=== PATIENT | female | born 1980 | race Caucasian/White ===

== ENCOUNTER 2019-07-05 18:51 | Emergency (ER) | payer MEDICAID ==
[2019-07-05 19:22] LABS: ABSOLUTE BASOPHILS # (AUTO) 0.1 10^3/uL (0.0-0.2); ABSOLUTE EOSINOPHILS # (AUTO) 0.3 10^3/uL (0.0-0.6); ABSOLUTE MONOCYTES (AUTO) 0.6 10^3/uL (0.1-1.4); ABSOLUTE NEUT (AUTO) 5.2 10^3/uL (1.7-8.2); BASOPHILS % (AUTO) 0.8 % (0-2); EOSINOPHILS % (AUTO) 3.3 % (0-6); HEMATOCRIT 38.6 % (36.0-47.0); HEMOGLOBIN 12.8 g/dL (12.0-15.5); LYMPHOCYTES % (AUTO) 32.9 % (13-45); MEAN CORPUSCULAR HEMOGLOBIN 30.4 pg (27.0-33.4); MEAN CORPUSCULAR HGB CONC 33.1 g/dL (32.0-36.0); MEAN CORPUSCULAR VOLUME 92 fl (80-97); MONOCYTES % (AUTO) 6.5 % (3-13); PLATELET COUNT 221 10^3/uL (150-450); RED CELL DISTRIBUTION WIDTH 14.2 % (11.5-14.0); SEGMENTED NEUTROPHILS % (AUTO) 56.5 % (42-78); TOTAL CELLS COUNTED % (AUTO) 100 %; WHITE BLOOD COUNT 9.2 10^3/uL (4.0-10.5)
[2019-07-05] MEDS ORDERED: ATROPINE SULFATE INJ 1 MG/10 ML DISP.SYRIN IV ONE (19:24)
[2019-07-05] MEDS ORDERED: DEXTROSE 5%-1/2 NORMAL SALINE 500 ML IV ONE (19:24)
--- NOTE | 2019-07-05 19:25 | ER Document Report ---
ED General - General Chief Complaint: Low Blood Sugar Stated Complaint: BLOOD SUGAR ISSUES Time Seen by Provider: 07/05/19 19:09 Mode of Arrival: Medic Information source: Patient, Emergency Med Personnel Notes: 39-year-old female with hypothyroidism, factor V, surgical history of gastric bypass 16 months ago, previous history of PE, DVT on Eliquis presents after a near syncopal episode that occurred just prior to arrival. Patient states that she was in the [facility] bathroom when she suddenly felt flushed, nauseous and had a change in her vision which prompted her to lay herself on the floor. She states when she opened her eyes EMS was there. There is a questionable loss of consciousness but patient states she did not hit her head. Patient has had prior similar symptoms. She denies any recent illness. Currently she is denies chest pain, shortness of breath, dizziness, headache, dysuria, hematuria. She is complaining of left lower quadrant abdominal pain that she describes as sharp, intermittent and lasting only a few minutes. Her last bowel movement was yesterday. She denies any black or bloody stools. She does report a 300 pound weight loss since undergoing her gastric bypass. She denies any complications. She is currently visiting her sister from [place]. Patient denies any new medication, changes in medication, drug use, alcohol use. - HPI Onset: Just prior to arrival Onset/Duration: Sudden, Intermittent Quality of pain: Sharp Severity: Mild Associated symptoms: denies: Chest pain, Nonproductive cough, Productive cough, Diarrhea, Headache, Hurts to breath, Nausea, Vomiting, Shortness of breath, Sweating, Weakness Exacerbated by: Denies Relieved by: Denies Similar symptoms previously: Yes Recently seen / treated by doctor: No - Related Data Allergies/Adverse Reactions: Penicillins Allergy (Verified 07/05/19 18:59) Past Medical History - General Information source: Patient - Social History Smoking Status: Current Every Day Smoker Cigarette use (# per day): Yes - 10 Smoking Education Provided: Yes - Smoking cessation counseling was provided for 4 minutes at the bedside Frequency of alcohol use: None Drug Abuse: None Lives with: Family Family History: Reviewed & Not Pertinent Patient has suicidal ideation: No Patient has homicidal ideation: No - Medical History Medical History: Other - Factor V Endocrine Medical History: Reports: Hx Hypothyroidism Renal/ Medical History: Denies: Hx Peritoneal Dialysis Review of Systems - Review of Systems Constitutional: Diaphoresis - Resolved, Weight loss. denies: Chills, Fever EENT: Blurred vision - Resolved Cardiovascular: Dizziness - Resolved, Lightheaded - Resolved. denies: Chest pain, Palpitations Respiratory: denies: Cough, Hurts to breathe, Short of breath, Wheezing Gastrointestinal: Abdominal pain, Nausea - Resolved. denies: Vomiting, Blood streaked bowels, Poor appetite, Poor fluid intake, Black stools, Rectal bleeding Genitourinary: denies: Dysuria, Flank pain, Hematuria Female Genitourinary: Other - Currently menstruating Musculoskeletal: denies: Back pain, Leg swelling Skin: denies: Rash Hematologic/Lymphatic: No symptoms reported Neurological/Psychological: Lost consciousness. denies: Headaches -: Yes All other systems reviewed and negative Physical Exam - Vital signs Vitals: Resp Pulse Ox 14 100 07/05/19 19:07 07/05/19 19:07 - Notes Notes: PHYSICAL EXAMINATION: GENERAL: Well-appearing, well-nourished and in no acute distress. HEAD: Atraumatic, normocephalic. EYES: Pupils equal round and reactive to light, extraocular movements intact, conjunctiva are normal. ENT: Nares patent, oropharynx clear without exudates. Moist mucous membranes. NECK: Normal range of motion, supple without lymphadenopathy LUNGS: Breath sounds clear to auscultation bilaterally and equal. No wheezes rales or rhonchi. HEART: Bradycardic while lying down but has regular rate with sitting and standing. No murmurs. Sinus rhythm. ABDOMEN: Soft, nontender, nondistended abdomen. No guarding, no rebound. Nontender umbilical hernia palpated. Female : deferred Musculoskeletal: Normal range of motion, no pitting or edema. No cyanosis. NEUROLOGICAL: Cranial nerves grossly intact. Normal speech, normal gait. Normal sensory, motor exams PSYCH: Normal mood, normal affect. SKIN: Warm, Dry, normal turgor, no rashes or lesions noted. Course - Re-evaluation Re-evalutation: Laboratory 07/05/19 07/05/19 07/05/19 19:05 19:08 19:08 WBC 9.2 RBC 4.20 Hgb 12.8 Hct 38.6 MCV 92 MCH 30.4 MCHC 33.1 RDW 14.2 H Plt Count 221 Lymph % (Auto) 32.9 Sawyer % (Auto) 6.5 Eos % (Auto) 3.3 Baso % (Auto) 0.8 Absolute Neuts (auto) 5.2 Absolute Lymphs (auto) 3.0 Absolute Monos (auto) 0.6 Absolute Eos (auto) 0.3 Absolute Basos (auto) 0.1 Seg Neutrophils % 56.5 PT INR APTT D-Dimer Sodium 138.1 Potassium 4.0 Chloride 106 Carbon Dioxide 25 Anion Gap 7 BUN 10 Creatinine 0.71 Est GFR ( Amer) > 60 Est GFR (MDRD) Non-Af > 60 Glucose 101 POC Glucose 86 Calcium 8.9 Phosphorus 3.4 Magnesium 2.1 Total Bilirubin 0.6 Direct Bilirubin 0.3 Neonat Total Bilirubin Not Reportable Neonat Direct Bilirubin Not Reportable Neonat Indirect Bili Not Reportable AST 39 H ALT 24 Alkaline Phosphatase 100 Troponin I Total Protein 7.1 Albumin 3.8 TSH Free T4 Free T3 pg/mL Urine Color Urine Appearance Urine pH Ur Specific Huntington Urine Protein Urine Glucose (UA) Urine Ketones Urine Blood Urine Nitrite Urine Bilirubin Urine Urobilinogen Ur Leukocyte Esterase Urine WBC (Auto) Urine RBC (Auto) U Hyaline Cast (Auto) Urine Bacteria (Auto) Squamous Epi Cells Auto Urine Mucus (Auto) Urine Ascorbic Acid Urine HCG, Qual Urine Opiates Screen Urine Methadone Screen Ur Barbiturates Screen Ur Phencyclidine Scrn Ur Amphetamines Screen U Benzodiazepines Scrn Urine Cocaine Screen U Marijuana (THC) Screen 07/05/19 07/05/19 07/05/19 19:08 19:08 19:08 WBC RBC Hgb Hct MCV MCH MCHC RDW Plt Count Lymph % (Auto) Sawyer % (Auto) Eos % (Auto) Baso % (Auto) Absolute Neuts (auto) Absolute Lymphs (auto) Absolute Monos (auto) Absolute Eos (auto) Absolute Basos (auto) Seg Neutrophils % PT 15.1 INR 1.19 APTT 31.7 D-Dimer 0.71 H Sodium Potassium Chloride Carbon Dioxide Anion Gap BUN Creatinine Est GFR ( Amer) Est GFR (MDRD) Non-Af Glucose POC Glucose Calcium Phosphorus Magnesium Total Bilirubin Direct Bilirubin Neonat Total Bilirubin Neonat Direct Bilirubin Neonat Indirect Bili AST ALT Alkaline Phosphatase Troponin I < 0.012 Total Protein Albumin TSH 73.30 H Free T4 0.92 Free T3 pg/mL 2.06 L Urine Color Urine Appearance Urine pH Ur Specific Huntington Urine Protein Urine Glucose (UA) Urine Ketones Urine Blood Urine Nitrite Urine Bilirubin Urine Urobilinogen Ur Leukocyte Esterase Urine WBC (Auto) Urine RBC (Auto) U Hyaline Cast (Auto) Urine Bacteria (Auto) Squamous Epi Cells Auto Urine Mucus (Auto) Urine Ascorbic Acid Urine HCG, Qual Urine Opiates Screen Urine Methadone Screen Ur Barbiturates Screen Ur Phencyclidine Scrn Ur Amphetamines Screen U Benzodiazepines Scrn Urine Cocaine Screen U Marijuana (THC) Screen 07/05/19 07/05/19 20:20 20:20 WBC RBC Hgb Hct MCV MCH MCHC RDW Plt Count Lymph % (Auto) Sawyer % (Auto) Eos % (Auto) Baso % (Auto) Absolute Neuts (auto) Absolute Lymphs (auto) Absolute Monos (auto) Absolute Eos (auto) Absolute Basos (auto) Seg Neutrophils % PT INR APTT D-Dimer Sodium Potassium Chloride Carbon Dioxide Anion Gap BUN Creatinine Est GFR ( Amer) Est GFR (MDRD) Non-Af Glucose POC Glucose Calcium Phosphorus Magnesium Total Bilirubin Direct Bilirubin Neonat Total Bilirubin Neonat Direct Bilirubin Neonat Indirect Bili AST ALT Alkaline Phosphatase Troponin I Total Protein Albumin TSH Free T4 Free T3 pg/mL Urine Color YELLOW Urine Appearance SLIGHTLY-CLOUDY Urine pH 6.0 Ur Specific Huntington 1.008 Urine Protein NEGATIVE Urine Glucose (UA) NEGATIVE Urine Ketones NEGATIVE Urine Blood LARGE H Urine Nitrite NEGATIVE Urine Bilirubin NEGATIVE Urine Urobilinogen NEGATIVE Ur Leukocyte Esterase TRACE H Urine WBC (Auto) 9 Urine RBC (Auto) 17 U Hyaline Cast (Auto) 1 Urine Bacteria (Auto) TRACE Squamous Epi Cells Auto 1 Urine Mucus (Auto) RARE Urine Ascorbic Acid NEGATIVE Urine HCG, Qual NEGATIVE Urine Opiates Screen NEGATIVE Urine Methadone Screen NEGATIVE Ur Barbiturates Screen NEGATIVE Ur Phencyclidine Scrn NEGATIVE Ur Amphetamines Screen NEGATIVE U Benzodiazepines Scrn NEGATIVE Urine Cocaine Screen NEGATIVE U Marijuana (THC) Screen NEGATIVE Abdomen/Pelvis CT 07/05/19 00:00 IMPRESSION: 1. No CT evidence for pulmonary embolism. 2. No acute pulmonary findings. 3. Fat-containing umbilical hernia with mild edema. Please correlate with clinical symptoms regarding possible fat necrosis. There is no bowel involvement. 4. No bowel obstruction or perforation 5. Previous gastric surgery Chest X-Ray 07/05/19 19:10 IMPRESSION: NO ACUTE RADIOGRAPHIC FINDING IN THE CHEST. Chest/Abdomen CTA 07/05/19 20:24 IMPRESSION: 1. No CT evidence for pulmonary embolism. 2. No acute pulmonary findings. 3. Fat-containing umbilical hernia with mild edema. Please correlate with clinical symptoms regarding possible fat necrosis. There is no bowel involvement. 4. No bowel obstruction or perforation 5. Previous gastric surgery Temp Pulse Resp BP Pulse Ox 98.7 F 56 L 12 115/78 100 07/06/19 00:29 07/06/19 00:29 07/06/19 00:29 07/06/19 00:29 07/05/19 22:00 07/05/19 19:33 39-year-old female presents via EMS after a near syncopal episode that occurred just prior to arrival. Glucose was found to be 65 and she was administered dextrose and repeat GGT is 95. EKG was obtained which does show sinus bradycardia at a rate of 40. Upon my exam patient's heart rate ranged from 45- 70. Patient's only current complaint is lower abdominal pain that she describes as intermittent. She has a benign abdominal exam. She does have a nontender umbilical hernia that is easily reduced. Patient is orthostatic negative. Heart rate did improve when she stood. She ambulated without difficulty. 07/05/19 23:55 Patient's TSH is markedly elevated. She is currently taking 175 mcg of Synthroid and reports that she has been compliant with her medication although she states that her thyroid levels have been hard to control. Patient did receive IV fluids. CTA was obtained after d-dimer was found to be elevated. CT of the chest showed no evidence of pulmonary embolism. CT of the abdomen did show an umbilical hernia which did not appear incarcerated or strangulated. T here was edema around the area but on reexamination patient has no pain over the the hernia. Patient did receive 1 dose of pain and atropine and did receive additional Synthroid. I will increase the patient's Synthroid to 200 mcg daily. Patient's bradycardia is likely secondary to her hypothyroidism but she is currently asymptomatic. I discussed at length that the patient should not drive until seen by her primary care physician in [place]. Patient was provided copies of all of her labs and imaging that were performed today. Patient is comfortable with discharge home. Encouraged to return with any concerning symptoms. 07/06/19 05:46 Patient was evaluated and treated as appropriate for the patient's presenting symptoms and complaint, with consideration of any critical or life threatening conditions that may be associated with their obtained history and exam as noted above. All results were discussed with patient and her who is at the bedside. Patient provided the opportunity to ask questions, and express concerns. Patient was educated on treatments based on their presumed diagnosis as noted above. At this time we will discharge the patient with return precautions and follow-up recommendations. Verbal discharge instructions given a the bedside. Medication warnings reviewed. Patient is in agreement with this plan and has verbalized understanding of return precautions. After careful consideration I feel that that patient can be safely discharged from the emergency department, they were advised to followup with a primary care physician in 2-3 days. Dictation on this chart was performed using voice recognition software and may result in unintended grammatical, spelling, syntax or errors. - Vital Signs Vital signs: Temp Pulse Resp BP Pulse Ox 98.7 F 56 L 12 115/78 100 07/06/19 00:29 07/06/19 00:29 07/06/19 00:29 07/06/19 00:29 07/05/19 22:00 - Laboratory Result Diagrams: 07/05/19 19:08 07/05/19 19:08 Laboratory results interpreted by me: 07/05/19 07/05/19 07/05/19 19:08 19:08 19:08 RDW 14.2 H D-Dimer AST 39 H TSH 73.30 H Free T3 pg/mL 2.06 L Urine Blood Ur Leukocyte Esterase 07/05/19 07/05/19 19:08 20:20 RDW D-Dimer 0.71 H AST TSH Free T3 pg/mL Urine Blood LARGE H Ur Leukocyte Esterase TRACE H - Diagnostic Test Radiology reviewed: Image reviewed, Reports reviewed - EKG Interpretation by Me EKG shows normal: Sinus rhythm Rate: Bradycardia Rhythm: NSR When compared to previous EKG there are: Previous EKG unavailable Discharge - Discharge Clinical Impression: Near syncope, Bradycardia, Elevated d-dimer Umbilical hernia Qualifiers: Obstruction and gangrene presence: without obstruction or gangrene Qualified Code(s): K42.9 - Umbilical hernia without obstruction or gangrene Hypothyroidism Qualifiers: Hypothyroidism type: unspecified Qualified Code(s): E03.9 - Hypothyroidism, unspecified Condition: Good Disposition: HOME, SELF-CARE Instructions: Hypothyroidism ([facility]), Near Syncopal Episode ([facility]), Umbilical Hernia ([facility]) Additional Instructions: Your heart rate was found to be low. This may be the reason that you felt dizzy, lightheaded. This could be related to your hypothyroidism. I will increase your Synthroid to 200 mcg daily. I advised that you do not drive until seen by your primary care physician. Follow up with your [id number] hours for further care or return to the ED IMMEDIATELY if symptoms worsen or you have any concerns. If you cannot afford to follow up with your primary care physician a list of low cost clinics have been provided at the end of your discharge papers as well. Most prescribed medications have multiple side effects. The safest thing to do is when filling your prescription speak to your pharmacist regarding possible interactions with your normal home medications and over the counter medications such as Ibuprofen, Tylenol, Benadryl. If you experience any symptoms that cause you discomfort or concern you should discontinue the medication immediately and return to the emergency room or call your primary care physician. Prescriptions: Levothyroxine Sodium [Synthroid] 200 mcg PO DAILY #14 tablet
[2019-07-05 19:42] LABS: ALBUMIN 3.8 g/dL (3.5-5.0); ALKALINE PHOSPHATASE 100 U/L (38-126); ANION GAP 7 (5-19); ASPARTATE AMINO TRANSFERASE 39 U/L (14-36); BILIRUBIN,DIRECT 0.3 mg/dL (0.0-0.4); BILIRUBIN,TOTAL 0.6 mg/dL (0.2-1.3); BLOOD UREA NITROGEN 10 mg/dL (7-20); CALCIUM 8.9 mg/dL (8.4-10.2); CARBON DIOXIDE 25 mmol/L (22-30); CHLORIDE 106 mmol/L (98-107); GLUCOSE 101 mg/dL (75-110); PHOSPHORUS 3.4 mg/dL (2.5-4.5); TOTAL PROTEIN 7.1 g/dL (6.3-8.2)
--- NOTE | 2019-07-05 20:02 | RADIOLOGY REPORT (SQ) ---
EXAM DESCRIPTION: CHEST SINGLE VIEW COMPLETED DATE/TIME: 07/05/2019 7:28 pm REASON FOR STUDY: bradycardia COMPARISON: None. EXAM PARAMETERS: NUMBER OF VIEWS: One view. TECHNIQUE: Single frontal radiographic view of the chest acquired. RADIATION DOSE: NA LIMITATIONS: None. FINDINGS: LUNGS AND PLEURA: No pneumothorax. No consolidation or pleural effusion. MEDIASTINUM AND HILAR STRUCTURES: No masses. Contour normal. HEART AND VASCULAR STRUCTURES: Heart normal in size. Normal vasculature. BONES: No acute findings. HARDWARE: None in the chest. OTHER: No other significant finding. IMPRESSION: NO ACUTE RADIOGRAPHIC FINDING IN THE CHEST. TECHNICAL DOCUMENTATION: JOB ID: [id number] [id number] 2010 [employer] All Rights Reserved Reading location - IP/workstation name: [employer]
[2019-07-05 20:08] LABS: INTERNATIONAL RATION (INR) 1.19; PROTHROMBIN TIME 15.1 SEC (11.4-15.4)
[2019-07-05 20:09] LABS: PARTIAL THROMBOPLASTIN TIME 31.7 SEC (23.5-35.8)
[2019-07-05 20:11] LABS: D-DIMER 0.71 ug/mL (0.00-0.50)
[2019-07-05 20:23] LABS: FREE T3 2.06 pg/mL (2.77-5.27); FREE T4 (FREE THYROXINE) 0.92 ng/dL (0.78-2.19)
[2019-07-05 20:36] LABS: THYROID STIMULATING HORMONE 73.3 uIU/mL (0.47-4.68)
[2019-07-05 20:49] LABS: APPEARANCE,URINE SLIGHTLY-CLOUDY; BILIRUBIN,URINE NEGATIVE (NEGATIVE); COLOR,URINE YELLOW; GLUCOSE, URINE NEGATIVE (NEGATIVE); KETONES,URINE NEGATIVE (NEGATIVE); LEUKOCYTE ESTERASE,URINE TRACE (NEGATIVE); NITRITE,URINE NEGATIVE (NEGATIVE); PROTEIN,URINE NEGATIVE (NEGATIVE); URINE SPECIFIC GRAVITY 1.008; UROBILINOGEN,URINE NEGATIVE mg/dL (<2.0)
[2019-07-05 20:51] LABS: URINE AMPHETAMINES SCREEN NEGATIVE; URINE BARBITURATES SCREEN NEGATIVE; URINE BENZODIAZEPINES SCREEN NEGATIVE; URINE COCAINE SCREEN NEGATIVE; URINE MARIJUANA (THC) SCREEN NEGATIVE; URINE METHADONE SCREEN NEGATIVE; URINE PHENCYCLIDINE SCREEN NEGATIVE
--- NOTE | 2019-07-05 22:43 | RADIOLOGY REPORT (SQ) ---
EXAM DESCRIPTION: [facility]: CT CHEST ANGIOGRAPHY WITHOUT THEN WITH IV CONTRAST, CT ABDOMEN PELVIS WITH IV CONTRAST CLINICAL HISTORY: 39 years Female Elevated d-dimer, syncope, history of PE TECHNIQUE: CT angiogram of the chest using intravenous contrast.. MIP reconstructions were performed. Additional CT images of the abdomen and pelvis were obtained immediately following the CTA acquisition. All CT scans at this facility use dose modulation, iterative reconstruction, and/or weight based dosing when appropriate to reduce radiation dose to as low as reasonably achievable. COMPARISON: None. FINDINGS: Chest: No filling defects in the central pulmonary arteries. No acute infiltrate, effusion, or pneumothorax. Mediastinum is normal, with no adenopathy or mass. Abdomen: Gastric staple line is noted. No adjacent edema. No gastric distention. Liver:No focal lesions. No intrahepatic ductal distention. Gallbladder:Negative Pancreas:Within normal limits Spleen:Within normal limits Right kidney:No hydronephrosis. No focal lesion. Left kidney:No hydronephrosis. No focal lesion. Adrenal glands:Within normal limits Vascular structures:Within normal limits Pelvis: A fat-containing umbilical hernia is 1.3 cm diameter, with fat herniating up to 4.3 cm through the defect. There is mild edema, but no bowel involvement. Small bowel: Oral contrast is seen in the majority of the small bowel, without distention. Appendix: Nondistended. Colon: No significant distention. No free intraperitoneal fluid or air. Uterus is slightly tilted to the left, but otherwise unremarkable. No adnexal enlargement. Facet arthropathy is noted in the lower lumbar spine. No acute bone findings. IMPRESSION: 1. No CT evidence for pulmonary embolism. 2. No acute pulmonary findings. 3. Fat-containing umbilical hernia with mild edema. Please correlate with clinical symptoms regarding possible fat necrosis. There is no bowel involvement. 4. No bowel obstruction or perforation 5. Previous gastric surgery
[2019-07-05] MEDS ORDERED: ATROPINE SULFATE INJ 1 MG/1 ML VIAL IV ONE (23:36)
[2019-07-05] MEDS ORDERED: LEVOTHYROXINE SODIUM 0.112 MG TABLET PO ONE (23:37)
[2019-07-05] MEDS ORDERED: LEVOTHYROXINE SODIUM 0.112 MG TABLET ONE (23:53)
[2019-07-06 00:34] VITALS: BP 115/78
--- NOTE | 2019-07-06 19:06 | EKG REPORT ---
SEVERITY:- OTHERWISE NORMAL ECG - SINUS BRADYCARDIA : Confirmed by: Jasmine Salgado MD 06-Jul-2019 19:05:18
== END 2019-07-06 00:29 | disposition home or self-care (01) ==
LOC: ER 18:51
DX: K42.9 Umbilical hernia without obstruction or gangrene (principal); E03.9 Hypothyroidism, unspecified; R00.1 Bradycardia, unspecified; R42 Dizziness and giddiness; R11.0 Nausea; R10.32 Left lower quadrant pain; Z98.84 Bariatric surgery status; Z86.711 Personal history of pulmonary embolism; Z86.718 Personal history of other venous thrombosis and embolism; Z79.01 Long term (current) use of anticoagulants; F17.210 Nicotine dependence, cigarettes, uncomplicated
CPT/HCPCS: 93005; 36415; 84439; 82962; 83735; 84100; 84443; 85025; 85610; 85730; 81025; 80053; 81001; 84484; 80307; 84481; 85379; 71045; 71275; 74177; 93010; J0461; J7070; 96361; 96374; 99284; 99406